=== PATIENT | male | born 1990 | race Caucasian/White ===

== ENCOUNTER 2019-02-22 17:43 | Emergency (ER) | payer OTHER, SELFPAY ==
[2019-02-22 17:55] VITALS: BP 132/76; PULSE 65; RESP 16; TEMP 36.9; O2SAT 97
--- NOTE | 2019-02-22 18:06 | ED.GENADUL_ITS ---
Discharge Plan Disposition Patient Disposition: HOME Condition: Stable Discharge Details Chief Complaint: Orthopedic Clinical Impression: Tendonitis Primary Care Provider: Alexander Seth ED Provider: Jonel Watkins Home Meds and New Rx's Prescriptions: No Action No Known Home Meds RF: 0 Discharge Instructions Instructions: Tendinitis (ED) Additional Instructions: you can take 1000mg tylenol and 600mg ibuprofen every 6 hours for pain as needed if pain continues in 1-2 weeks call orthopedics for an appointment Referrals: Tyree Brandt MD [ [facility] STAFF PHYSICIAN] - Medical Decision Making 28 yo male with no chronic medical problems comes in with left wrist pain. 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 Denies falls or other trauma. Has full rom without any swelling. Has pain over the anterior left wrist no redness or e rtyema or other signs of infection. Intact sensation and pulses. Suspect tendonitis vs sprain, given no fall and full rom doubt fx and do not feel xray indicated. will have him f/u with orthopedics if pain continues and return precautions given Differential Diagnosis Differential Diagnosis: tendonitis, sprain, strain HPI General Mode of arrival: ambulatory . Date/Time Provider Initiated Documentation: 02/22/19 18:00 . Limitations to Documentation: no limitations . Information obtained by: patient . History of Present Illness 28 year old M presents to the emergency department with the chief complaint of left wrist pain, described as moderate, Patient reports no radiation. Patient started experiencing this day(s) (3) and it has been constant. Rest improves symptom(s), Rest worsens symptoms . Patient notes no other symptoms.. Patient did receive the following treatments prior to arrival, none Related Data Home Medications Medication Instructions Recorded Confirmed Unknown [No Known Home Meds] 02/22/19 02/22/19 Allergies Allergy/AdvReac Type Severity Reaction Status Date / Time lidocaine Allergy Unverified 02/22/19 17:58 General Stated Complaint: Orthopedic TAYLOR: 4 Review of Systems All systems reviewed & are unremarkable except as noted in HPI and below Constitutional Constitutional: Denies chills, Denies fever(s) and Denies weakness Cardiovascular Cardiovascular: Denies chest pain and Denies dyspnea Respiratory Respiratory: Denies cough and Denies dyspnea Gastrointestinal Gastrointestinal: Denies abdominal pain, Denies nausea and Denies vomiting Musculoskeletal Musculoskeletal: Denies joint swelling Neurologic Neurologic: Denies weakness PFSH Social History Smoking/Tobacco Use Status: Never Alcohol Intake: never Substance use type: does not use Exam Const General: no acute distress Orientation: alert HENMT Head: normal to inspection Ears: external ears normal General nose exam: external nose normal Mouth: moist mucous membranes Eyes General: appearance normal, both eyes and all related structures Neck Neck: normal visual inspection Resp Effort & Inspection: normal respiratory effort and able to speak in complete sentences Cardio Rate: regular rate Skin General skin exam: no rashes or lesions noted Neuro General: alert and oriented x3 Extrem General: normal to inspection, full ROM and normal capillary refill Psych Mental Status: mental status grossly normal Course Vital Signs Vital signs: Vital Signs Temperature 36.9 C 02/22/19 17:55 Pulse 65 02/22/19 17:55 Respiratory Rate 16 02/22/19 17:55 Blood Pressure 132/76 02/22/19 17:55 Pulse Oximetry 97 02/22/19 17:55 Temperature 36.9 C 02/22/19 17:55 Temperature Source Skin 02/22/19 17:55 Pulse 65 02/22/19 17:55 Respiratory Rate 16 02/22/19 17:55 Respiratory Effort Non-Labored 02/22/19 17:55 Blood Pressure 132/76 02/22/19 17:55 Blood Pressure Position Sitting 02/22/19 17:55 Pulse Oximetry 97 02/22/19 17:55 Oxygen Delivery Method Room Air 02/22/19 17:55 Oxygen Flow Rate 0 02/22/19 17:55 Pain Level 8 02/22/19 17:55
== END 2019-02-22 18:24 | disposition home or self-care (01) ==
LOC: ER 18:28
PROVIDERS: Emergency Provider Emergency Medicine; PCP Pediatrics
DX: M77.8 Other enthesopathies, not elsewhere classified (principal); X50.0XXA Overexertion from strenuous movement or load, initial encounter; Y99.0 Civilian activity done for income or pay
CPT/HCPCS: 29125; 99283; L3908

== ENCOUNTER 2022-10-09 00:38 | Outpatient (CLI) | payer OTHER, SELFPAY ==
--- NOTE | 2022-10-09 07:30 | DI.CT_ITS ---
Exam(s) CT ABDOMEN PELVIS W EXAM: CT ABDOMEN PELVIS W CLINICAL HISTORY: abd pain along inguinal ligament,?hernia,R10.9. TECHNIQUE: Imaging Protocol: Axial computed tomography images with coronal and sagittal reformatted images were created and reviewed CONTRAST MATERIAL: Intravenous: Omnipaque 350 Contrast volume:100 ml Oral: yes / COMPARISON: No exams were available for comparison FINDINGS: ABDOMEN: Lung Bases: Normal where visualized. Liver: Normal density. No measurable mass. Gallbladder and biliary tract: No radiodense calculus or dilation. Pancreas: Normal density, no abnormal calcifications or inflammatory process. Spleen: Normal. Kidneys: Normal size, contour and axis. No radiodense stones or obstructive uropathy. No suspicious m asses seen. Adrenal glands: No masses seen. Abdominal Aorta: Abdominal portion non-dilated. Soft tissues: Unremarkable. No evidence of inguinal or other hernia. No inguinal adenopathy. No edema or fluid in the region of the inguinal canals. PELVIS: Bladder: No gross wall thickening. No calculi.No focal mass. Bowel: No obstruction. No bowel wall thickening. Appendix normal. Peritoneal cavity: No ascites, collection or mesenteric inflammatory response. Bones: Unremarkable for age. Reproductive organs: Within normal limits. Lymph nodes: Unremarkable. Impression: Unremarkable CT scan of the abdomen and pelvis. No evidence of inguinal hernia. RADIATION DOSE DELIVERED: Total DLP DATA REPOSITORY: All CT scans at this facility are submitted to the National Radiology Data Registry (NRDR) Dose Index Registry (DIR) with the [employer] (A[employer]). RADIATION OPTIMIZATION: All CT scans at this facility use at least one of these dose optimization te chniques: automated exposure control; mA and/or kV adjustment per patient size (includes targeted exa ms where dose is matched to clinical indication); or iterative reconstruction.
[2022-10-09] MEDS: Barium Sulfate 2% W/V-Berry Smoothie 450 ML BTL PO ×2 (10:00→10:01)
[2022-10-09] MEDS: Omnipaque 350 MG/ML 500 ML BTL-Imaging package IJ (11:01)
[2022-10-09] MEDS: Normal Saline - Diluent 50 ML VIAL IJ (11:04)
[2022-10-09] MEDS: Normal Saline Flush 10 ML SYR IVP (11:04)
== END 2022-10-09 00:58 ==
LOC: DI 00:39
PROVIDERS: PCP Family Medicine; Visit Provider Nurse Practitioner Family
DX: R10.9 Unspecified abdominal pain (principal)
CPT/HCPCS: 74177

== ENCOUNTER 2023-08-17 02:18 | Outpatient (CLI) | payer OTHER, SELFPAY ==
[2023-08-17 16:32] LABS: ALT 40 U/L (16-63); AST 17 U/L (15-37); Albumin 4.3 g/dL (3.4-5.0); Alkaline Phosphatase 101 U/L (46-116); Anion Gap 4.3 mmol/L (3-11); BUN 11 mg/dL (7-18); Bilirubin, Total 0.3 mg/dL (0.2-1.0); CO2 28.7 mmol/L (21.0-32.0); CREATININE 1.1 mg/dL (0.70-1.30); Calcium 8.9 mg/dL (8.5-10.1); Calculated LDL 117 mg/dL (<100); Chloride 105 mmol/L (98-107); Cholesterol 201 mg/dL (<200); Estimated GFR 90.34 (mL/min/1.73m2); Glucose 95 mg/dL (74-106); HDL Cholesterol 56 mg/dL (40-60); Potassium 3.8 mmol/L (3.5-5.1); Sodium 138 mmol/L (136-145); TSH (W/Ref FT4) 1.52 uIU/mL (0.36-3.74); Total Protein 8.1 g/dL (6.4-8.2); Triglyceride 144 mg/dL (<150)
[2023-08-18 10:47] LABS: Hepatitis C Ab w Rflx HCV PCR Negative (Negative)
[2023-08-18 10:52] LABS: HIV-1/2 Ag & Ab Screen Negative (Negative)
== END 2023-08-17 02:19 | disposition home or self-care (01) ==
PROVIDERS: PCP Family Medicine; Visit Provider Family Medicine
DX: R53.83 Other fatigue (principal); Z13.6 Encounter for screening for cardiovascular disorders; Z11.3 Encounter for screening for infections with a predominantly sexual mode of transmission
CPT/HCPCS: 36415; 80053; 80061; 86803; 87389; 84443